=== PATIENT | male | born 1955 | race Caucasian/White ===

== ENCOUNTER 2016-11-09 07:57 | Emergency (ER) | payer OTHER ==
[~2016-11-09] VITALS: Ht 160 cm; Wt 67.0 kg
[~2016-11-09 07:57] MED LIST: ENAL5TAB PO; HYDR-3498 PO; HYDR-762 PO
[2016-11-09 08:00] VITALS: Ht 160 cm; Wt 67.0 kg
--- NOTE | 2016-11-09 08:35 | ERD ---
ER Documentation Chief Complaint Date/Time DATE: 11/09/16 TIME: 08:33 Chief Complaint right hand numbness x 1 day no other neur HPI 7-year-old male with history of hypertension, scoliosis of thoracic comes emergency department with right hand numbness that started yesterday at 4 AM. Patient states that he was at home, started approximately 4 AM where the numbness started from the right elbow down to his right hand, and he has difficulty with opening his palm. He states that symptoms started gradually. He has not had any other deficits otherwise. No chest pain, shortness breath or dizziness. Denies trauma. ROS All systems reviewed and are negative except as per history of present illness. Medications Home Meds Active Scripts Methylprednisolone* (Medrol* DOSE PACK) 4 Mg/Dose-Pack Tab.ds.pk, 4 MG PO . DIRECTED, #1 PACKET Prov:VENU BENJAMIN PA-C 11/09/16 Hydrocodone Bit-Acetaminophen* ([place]*) 10-325 Mg Tablet, 1 TAB PO Q6 Y for PAIN , #20 TAB Prov:DC GTZ 12/19/14 Reported Medications Enalapril Maleate* (Enalapril Maleate*) Unknown Strength Tablet, PO DAILY, TAB 12/18/14 Hydrocodone Bit-Acetaminophen* ([place]*) 5-325 Mg Tab, 1 TAB PO Q4H Y for PAIN, TAB 12/18/14 Allergies Allergies: Coded Allergies: No Known Drug Allergies (Verified Allergy, Mild, 12/18/14) PMhx/Soc History of Surgery: Yes (APPENDECTOMY; ULCER SX; R INGUINIAL REPAIR ) Anesthesia Reaction: No Hx Neurological Disorder: No Hx Respiratory Disorders: No Hx Cardiac Disorders: Yes (HTN) Hx Psychiatric Problems: No Hx Miscellaneous Medical Probl: Yes (pneumothorax s/p partial lung resection) Hx Alcohol Use: No Hx Substance Use: No Hx Tobacco Use: Yes Smoking Status: Never smoker Physical Exam Vitals Vital Signs Date Time Temp Pulse Resp B/P Pulse Ox O2 Delivery O2 Flow Rate FiO2 11/09/16 08:00 98.1 62 18 141/75 99 Physical Exam General: Well-developed, well-nourished. The patient appears in no acute distress. HEENT: Head is normocephalic, atraumatic. No scleral icterus. Neck: Supple. Nontender. Lungs: Clear to auscultation. Normal air movement. Heart: Regular rate and rhythm. S1 and S2 are normal. No murmurs, gallops, or rubs. Abdomen: Soft, nontender, nondistended. Bowel sounds are normoactive. Extremities: No clubbing or cyanosis. Patient has manager of warehouse strength 4 out of 5 on the right side, radial pulse 2+, no swelling, no erythema or warmth. Patient is able to mildly extend the right thumb, not able to make okay sign. Patient' s hand is flexed at baseline, able to partially extend digits. Capillary refill less than 2 seconds. Patient is able to flex and extend bilateral wrists , with normal strength. Neurologic: Alert and oriented 3. Cranial nerves II 12 grossly intact. No focal deficits. Speech and gait normal, cranial nerves II through XII grossly intact, manager of warehouse strength 4 out of 5 on right, 5 out of 5 on the left. Strength lower extremities 5 out of 5 bilaterally. Skin: Normal turgor. No rash or lesions. Procedures/MDM MDM: 61-year-old male comes in for hand numbness in the right side, and patient' s symptoms start with pain in the elbow radiating to the right hand, likely neuropathy. This patient examination and history is consistent with neuropathy , his symptoms began yesterday at 4 AM, and his MRI of the brain does not show any evidence of intracranial process, including stroke. His neurologic examination otherwise is benign, there is no weakness, no speech deficits, no ataxia. This case was discussed at length with my attending physician Dr. Landers who agrees that the patient is appropriate to be worked up outpatient with a neurologist. I have given information to neurologist Dr. Adams to follow-up for further evaluation and testing. In the meantime patient may take ibuprofen for the pain in the elbow, as well as Medrol Dosepak. No evidence of axillary injury, there is no wrist drop. The case was reviewed and discussed with Dr. Landers who agrees with the plan of care including labs, treatment, and advanced imaging as appropriate. Patient's blood pressure was elevated (>120/80) but appears stable without evidence of hypertension emergency or urgency. The patient was counseled about the risks of hypertension and urged to pursue outpatient monitoring and therapy within a week with their primary care physician. Departure Diagnosis: Primary Impression: Hand numbness Condition: VENU Sainz-C Nov 09, 2016 08:35
--- NOTE | 2016-11-09 11:22 | RADRPT ---
PROCEDURE: MRI Brain without contrast. CLINICAL INDICATION: Right hand contraction, numbness from elbow down TECHNIQUE: Multiplanar MRI of the brain without contrast was performed on a 3.0 T scanner with the following sequences obtained: T1-weighted, T2-weighted/FLAIR, diffusion weighted (with ADC map), GR E. COMPARISON: CT brain 12/10/2008 FINDINGS: No acute/recent ischemic infarction or intracranial hemorrhage / blood degradation products are iden tified. No extra-axial fluid collection is seen. There is no mass effect. No midline shift is identified. The ventricles and sulci are within normal limits for size and configuration. A few scattered minimal areas of increased T2-weighted FLAIR signal intensity are seen in the deep w lauren matter which are Flow voids are identified in the proximal intracranial arteries and dural sinuses suggesting patency . There is partial bilateral ethmoid air cell opacification and right maxillary sinus mucosal thickeni ng/secretions. IMPRESSION: 1. No evidence of acute intracranial pathology. 2. Minimal nonspecific white matter changes, which may reflect chronic small vessel ischemic change s. RPTAT: VV .Jacob Schmitt MD, Date Time Electronically viewed and signed by .Jacob Schmitt MD, on 11/09/2016 11:22 .O/
[2016-11-09] MEDS ORDERED: MED4DP PO (12:00)
== END 2016-11-09 12:12 | disposition home or self-care (01) ==
LOC: FTE 07:57
DX: R20.0 Anesthesia of skin (principal); I10 Essential (primary) hypertension; Z87.891 Personal history of nicotine dependence
CPT/HCPCS: 70551

== ENCOUNTER 2017-03-16 15:49 | Inpatient (IN) | payer OTHER ==
[~2017-03-16] VITALS: Ht 182.9 cm; Wt 73.5 kg
[~2017-03-16 15:49] MED LIST changes: +MED4DP PO
[2017-03-16] MEDS ORDERED: ASPIRIN 81 MG TAB PO STA (15:54)
[2017-03-16] MEDS ORDERED: DILTIAZEM 25 MG INJ IV ONE ×2 (16:00→17:00)
[2017-03-16] MEDS ORDERED: DILTIAZEM 30 MG TAB PO ONE (16:00)
[2017-03-16 16:30] LABS: BASOPHIL # 0.1 10^3/ul (0.0-0.1); BASOPHILS % 0.8 % (0.0-2.0); EOSINOPHILS # 0.2 10^3/ul (0.0-0.5); EOSINOPHILS % 1.9 % (0.0-7.0); HEMATOCRIT 39.1 % (42.0-52.0); LYMPHOCYTES # 0.9 10^3/ul (0.8-2.9); LYMPHOCYTES % 9.7 % (15.0-51.0); MEAN CORPUSCULAR HEMOGLOBIN 27.5 pg (29.0-33.0); MEAN CORPUSCULAR HGB CONC 30.7 g/dl (32.0-37.0); MEAN CORPUSCULAR VOLUME 89.7 fl (82.0-101.0); MEAN PLATELET VOLUME 10.3 fl (7.4-10.4); MONOCYTE # 0.6 10^3/ul (0.3-0.9); MONOCYTES % 6.6 % (0.0-11.0); NEUTROPHIL # 7.6 10^3/ul (1.6-7.5); NEUTROPHILS % 80.5 % (39.0-77.0); PLATELET COUNT 329 10^3/UL (140-415); RED BLOOD COUNT 4.36 10^6/ul (4.70-6.10); RED CELL DISTRIBUTION WIDTH 15.7 % (11.5-14.5); WHITE BLOOD COUNT 9.5 10^3/ul (4.8-10.8)
[2017-03-16] MEDS ORDERED: MECL-77 PO (16:31)
[2017-03-16] MEDS ORDERED: RANO500T2 PO (16:31)
[2017-03-16] MEDS ORDERED: LORA1TAB PO (16:31)
[2017-03-16] MEDS ORDERED: SERT-165 PO (16:32)
[2017-03-16] MEDS ORDERED: TRAZ150T65 PO (16:33)
[2017-03-16] MEDS ORDERED: ACET1TAB40 PO (16:34)
[2017-03-16] MEDS ORDERED: ASPI81TA50 PO (16:35)
[2017-03-16] MEDS ORDERED: BUTA1CAP41 PO (16:36)
[2017-03-16] MEDS ORDERED: CILO50TA PO (16:37)
[2017-03-16] MEDS ORDERED: CLON1TAB3 PO (16:38)
[2017-03-16] MEDS ORDERED: CLON-379 PO (16:40)
[2017-03-16] MEDS ORDERED: DOCU100T PO (16:43)
[2017-03-16] MEDS ORDERED: ENAL10TA PO (16:43)
[2017-03-16] MEDS ORDERED: DICY10CA60 PO (16:43)
[2017-03-16 16:44] LABS: INR 1.16; PROTIME 14.8 Sec (12.2-14.2); PT RATIO 1.2
[2017-03-16 16:45] LABS: PARTIAL THROMBOPLASTIN TIME 34.4 Sec (25.0-35.0)
[2017-03-16] MEDS ORDERED: FAMO40TA52 PO (16:45)
[2017-03-16] MEDS ORDERED: ISOS120T15 PO (16:46)
[2017-03-16] MEDS ORDERED: NAPR500T8 PO (16:47)
[2017-03-16 16:48] LABS: CALCIUM 9.4 mg/dl (8.4-10.2); CREATININE 0.92 mg/dl (0.61-1.24); POTASSIUM 3.7 mmol/L (3.5-5.1)
[2017-03-16] MEDS ORDERED: NITR0.4T32 SL (16:48)
[2017-03-16] MEDS ORDERED: PROP10TA6 PO (16:49)
[2017-03-16] MEDS ORDERED: OMEP40CA6 PO (16:49)
[2017-03-16 16:59] LABS: TROPONIN-I 0.016 ng/ml (0.00-0.12)
--- NOTE | 2017-03-16 17:02 | RADRPT ---
PROCEDURE: XR Chest. CLINICAL INDICATION: Chest pain TECHNIQUE: A single portable view of the chest was obtained. COMPARISON: 02/21/2013 FINDINGS: The cardiomediastinal silhouette is within normal limits. Right apical pleural thickening is seen wi th volume loss. Retraction of the right hilum is seen. No dense consolidation or pleural effusion is seen. The soft tissues and osseous structures are unremarkable. IMPRESSION: 1. Right apical pleural thickening with volume loss and retraction of the right hilum again seen an d is essentially unchanged. 2. Otherwise, no acute cardiopulmonary disease. RPTAT: HPNM Physician Alta Date Time Electronically viewed and signed by Physician Alta on 03/16/2017 17:02 /
[2017-03-16] MEDS ORDERED: ACET/BUTAL/CAFF TAB PO ONE (17:30)
[2017-03-16 17:46] VITALS: TEMP 98.4
[2017-03-16] MEDS ORDERED: ONDANSETRON 4 MG INJ IV STA (17:59)
[2017-03-16] MEDS ORDERED: morphine 4 MG/ML VIAL IV STA (17:59)
[2017-03-16] MEDS ORDERED: ONDANSETRON 4 MG INJ IV PRN ×2 (18:30→20:00)
[2017-03-16] MEDS ORDERED: ACETAMINOPHEN 325 MG TAB PO PRN ×2 (18:30→20:00)
--- NOTE | 2017-03-16 19:17 | ERA ---
ER Documentation Chief Complaint Date/Time DATE: 03/16/17 TIME: 19:09 Chief Complaint CHEST PALPITATION WHILE AT CLINIC, RAPID A FIB. NEW ONSET. NO N/V. MILD SOB HPI Patient is a 62-year-old male with hypertension who presents with low blood pressure. The patient was brought in by ambulance from a clinic. He has new onset atrial fibrillation that was diagnosed at the clinic and low blood pressure by paramedics. He was given 250 mL of fluid by paramedics. He admits to chest pain as well. The symptoms started 1.5 hours ago. The symptoms have been constant. His primary doctor is Dr. Payan. 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 ROS All systems reviewed and are negative except as per history of present illness. Medications Home Meds Reported Medications Propranolol Hcl* (Propranolol Hcl*) 10 Mg Tablet, 10 MG PO TID, TAB 03/16/17 Omeprazole* (Omeprazole*) 40 Mg Capsule.dr, 40 MG PO DAILY, #30 CAP 03/16/17 Nitroglycerin* (Nitroglycerin* SL) 0.4 Mg Tab.subl, 0.4 MG SL Q5MIN Y for CHEST PAIN, BOTTLE 03/16/17 Naproxen* (Naproxen EC*) 500 Mg Tablet.dr, 500 MG PO BID, TAB 03/16/17 Isosorbide Mononitrate* (Isosorbide Mononitrate*) 120 Mg Tab.sr.24h, 120 MG PO DAILY, TAB.SA 03/16/17 Famotidine* (Famotidine*) 40 Mg Tablet, 40 MG PO DAILY, #30 TAB 03/16/17 Enalapril Maleate* (Enalapril Maleate*) 10 Mg Tablet, 10 MG PO BID, TAB 03/16/17 Docusate Sodium* (Dok*) 100 Mg Tablet, 100 MG PO DAILY, #30 CAP 03/16/17 Dicyclomine Hcl* (Bentyl*) 10 Mg Capsule, 20 MG PO BID, CAP 03/16/17 Clonidine Hcl* (Clonidine Hcl*) 0.1 Mg Tab, 0.1 MG PO DAILY Y for NEEDED, TAB 03/16/17 Clonazepam* (Clonazepam*) 1 Mg Tablet, 1 MG PO QHS Y for ANXIETY, TAB 03/16/17 Cilostazol* (Cilostazol*) 50 Mg Tablet, 50 MG PO BID, TAB 03/16/17 Masdybpqjc-Rgvebugloirww-Jezuxtlk* ([place]*) 50-325-40 Mg Capsule, 1 CAP PO Q6H Y for NEEDED, CAP 03/16/17 Aspirin (Aspir-Low) 81 Mg Tablet.dr, 81 MG PO DAILY 03/16/17 Acetaminophen with Codeine (Acetaminophen-Cod #3 Tablet) 1 Each Tablet, 1 TAB PO Q6H Y for NEEDED, #7 TAB 03/16/17 Trazodone Hcl* (Trazodone Hcl*) 150 Mg Tablet, 150 MG PO QHS, #30 TAB 03/16/17 Sertraline Hcl* (Sertraline Hcl*) 100 Mg Tablet, 200 MG PO QAM, #60 TAB 03/16/17 Ranolazine* (Ranexa*) 500 Mg Tab.sr.12h, 500 MG PO Q12, TAB 03/16/17 Meclizine Hcl* (Meclizine Hcl*) 25 Mg Tablet, 25 MG PO DAILY Y for DIZZINESS, TAB 03/16/17 Lorazepam* (Lorazepam*) 1 Mg Tablet, 1 MG PO HS Y for ANXIETY, #30 TAB 03/16/17 Discontinued Reported Medications Enalapril Maleate* (Enalapril Maleate*) Unknown Strength Tablet, PO DAILY, TAB 12/18/14 Hydrocodone Bit-Acetaminophen* ([place]*) 5-325 Mg Tab, 1 TAB PO Q4H Y for PAIN, TAB 12/18/14 Discontinued Scripts Methylprednisolone* (Medrol* DOSE PACK) 4 Mg/Dose-Pack Tab.ds.pk, 4 MG PO . DIRECTED, #1 PACKET Prov:VENU BENJAMIN PA-C 11/09/16 Hydrocodone Bit-Acetaminophen* ([place]*) 10-325 Mg Tablet, 1 TAB PO Q6 Y for PAIN , #20 TAB Prov:DC GTZ 12/19/14 Allergies Allergies: Coded Allergies: No Known Drug Allergies (Verified Allergy, Mild, 03/16/17) PMhx/Soc History of Surgery: Yes (APPENDECTOMY; ULCER SX; R INGUINIAL REPAIR ) Anesthesia Reaction: No Hx Neurological Disorder: No Hx Respiratory Disorders: No Hx Cardiac Disorders: Yes (HTN) Hx Psychiatric Problems: No Hx Miscellaneous Medical Probl: Yes (pneumothorax s/p partial lung resection) Hx Alcohol Use: No Hx Substance Use: No Hx Tobacco Use: Yes FmHx Family History: No coronary disease Physical Exam Vitals Vital Signs Date Time Temp Pulse Resp B/P Pulse Ox O2 Delivery O2 Flow Rate FiO2 03/16/17 17:46 98.4 72 18 112/72 97 Room Air 03/16/17 17:36 98.4 70 18 97/54 97 Room Air 03/16/17 16:01 Nasal Cannula 2 03/16/17 15:53 98.8 172 21 98/56 98 Physical Exam Const: Moderate distress Head: Atraumatic Eyes: Normal Conjunctiva ENT: Normal External Ears, Nose and Mouth. Neck: Full range of motion..~ No meningismus. Resp: Clear to auscultation bilaterally Cardio: Critical rate with irregular rhythm Abd: Soft, non tender, non distended. Normal bowel sounds Skin: Pale skin Back: No midline or flank tenderness Ext: No cyanosis, or edema Neur: Awake and alert Psych: Normal Mood and Affect Result Diagram: 03/16/17 1600 03/16/17 1600 Results 24 hrs Laboratory Tests Test 03/16/17 16:00 White Blood Count 9.510^3/ul Red Blood Count 4.3610^6/ul Hemoglobin 12.0g/dl Hematocrit 39.1% Mean Corpuscular Volume 89.7fl Mean Corpuscular Hemoglobin 27.5pg Mean Corpuscular Hemoglobin Concent 30.7g/dl Red Cell Distribution Width 15.7% Platelet Count 18435^3/UL Mean Platelet Volume 10.3fl Neutrophils % 80.5% Lymphocytes % 9.7% Monocytes % 6.6% Eosinophils % 1.9% Basophils % 0.8% Nucleated Red Blood Cells % 0.0/100WBC Neutrophils # 7.610^3/ul Lymphocytes # 0.910^3/ul Monocytes # 0.610^3/ul Eosinophils # 0.210^3/ul Basophils # 0.110^3/ul Nucleated Red Blood Cells # 0.010^3/ul Prothrombin Time 14.8Sec Prothrombin Time Ratio 1.2 INR International Normalized Ratio 1.16 Activated Partial Thromboplast Time 34.4Sec Sodium Level 145mmol/L Potassium Level 3.7mmol/L Chloride Level 107mmol/L Carbon Dioxide Level 26mmol/L Anion Gap 16 Blood Urea Nitrogen 14mg/dl Creatinine 0.92mg/dl Glucose Level 135mg/dl Calcium Level 9.4mg/dl Troponin I 0.016ng/ml Current Medications Medications (Trade) Dose Ordered Sig/Keila Route PRN Reason Start Time Stop Time Status Last Admin Dose Admin Aspirin (Aspirin) 162 mg ONCE STAT PO 03/16/17 15:54 03/16/17 15:55 DC 03/16/17 16:13 Diltiazem HCl (Cardizem Iv) 10 mg ONCE ONCE IV 03/16/17 16:00 03/16/17 16:01 DC 03/16/17 16:13 Diltiazem HCl (Cardizem) 30 mg ONCE ONCE PO 03/16/17 16:00 03/16/17 16:01 DC 03/16/17 16:14 Diltiazem HCl (Cardizem Iv) 20 mg ONCE ONCE IV 03/16/17 17:00 03/16/17 17:01 DC 03/16/17 16:59 Acetaminophen/ Butalbital/ Caffeine (Fioricet) 1 tab ONCE ONCE PO 03/16/17 17:30 03/16/17 17:31 DC 03/16/17 17:25 Morphine Sulfate (morphine) 4 mg ONCE STAT IV 03/16/17 17:59 03/16/17 18:00 DC 03/16/17 18:08 Ondansetron HCl (Zofran Inj) 4 mg ONCE STAT IV 03/16/17 17:59 03/16/17 18:00 DC 03/16/17 18:08 Ondansetron HCl (Zofran Inj) 4 mg ER BRIDGE PRN IV NAUSEA AND/OR VOMITING 03/16/17 18:30 03/17/17 18:29 Acetaminophen (Tylenol Tab) 650 mg ER BRIDGE PRN PO MILD PAIN/FEVER 03/16/17 18:30 03/17/17 18:29 Procedures/MDM EKG #1 read by me: Rate/Rhythm: Rapid atrial fibrillation at a rate of 162 Intervals: Normal Impression: Rapid atrial fibrillation with ST depressions EKG #2 read by me: Rate/Rhythm: Rapid atrial fibrillation at a rate of 166 Intervals: Normal Impression: Rapid atrial fibrillation with ST depressions PROCEDURE: XR Chest. CLINICAL INDICATION: Chest pain TECHNIQUE: A single portable view of the chest was obtained. COMPARISON: 02/21/2013 FINDINGS: The cardiomediastinal silhouette is within normal limits. Right apical pleural thickening is seen with volume loss. Retraction of the right hilum is seen. No dense consolidation or pleural effusion is seen. The soft tissues and osseous structures are unremarkable. IMPRESSION: 1. Right apical pleural thickening with volume loss and retraction of the right hilum again seen and is essentially unchanged. 2. Otherwise, no acute cardiopulmonary disease. RPTAT: HPNM Physician Alta Date Time Electronically viewed and signed by Howard Sherman Physician on 03/16/2017 17 :02 Smoking Cessation Therapy: Pt. was lectured for greater than 3 minutes on the health risks of continued smoking and the benefits of cessation. Patient is a 62-year-old male with hypertension who presents with new onset rapid atrial fibrillation and hypotension. The patient was given fluid boluses upon arrival because I did want to give diltiazem both IV and p.o. The patient improved his heart rate while in the emergency department and his blood pressure improved slightly as well. The patient will be admitted to the care of the panel team for further treatment. He is unstable for transfer given his new onset atrial fibrillation and hypertension. The patient does not require pressor administration at this time. The patient also has chest pain and I am concerned about possible acute coronary syndrome so he was given aspirin. I held off on nitroglycerin because of his hypotension. I doubt pneumonia, pneumothorax, pulmonary embolism, or aortic dissection. Critical Care: Time: 35 minutes excluding all billable procedures. Treatments/Evaluations: Close monitoring and treatment of unstable vital signs, cardiorespiratory, and neurologic status, while maintaining tight balance of fluid, respiratory, and cardiac interventions. Departure Diagnosis: Primary Impression: Atrial fibrillation with rapid ventricular response Additional Impressions: Palpitations Hypotension Qualified Code: I95.9 - Hypotension, unspecified hypotension type Condition: MICHAEL Lorenzo MD Mar 16, 2017 19:17
[2017-03-16] MEDS ORDERED: BISACODYL (EC) 5 MG TAB PO PRN (20:00)
[2017-03-16] MEDS ORDERED: NACL 0.9% 3 ML SYG IV SCH (20:00)
[2017-03-16] MEDS ORDERED: morphine 2 MG INJ IV PRN (20:00)
[2017-03-16] MEDS ORDERED: clonAZEPAM 0.5 MG TAB PO PRN (20:00)
[2017-03-16] MEDS ORDERED: MECLIZINE 25 MG TAB PO PRN (20:00)
[2017-03-16] MEDS ORDERED: ASPIRIN (EC) 325 MG TAB PO SCH (20:00)
[2017-03-16] MEDS ORDERED: BUTALBITAL ACETAMINOPHEN CAFFEINE PO PRN (20:00)
[2017-03-16] MEDS ORDERED: DOCUSATE SODIUM 100 MG CAP PO PRN (20:00)
[2017-03-16] MEDS ORDERED: traZODone 50 MG TAB PO SCH (21:00)
[2017-03-16] MEDS ORDERED: CILOSTAZOL 100 MG TAB PO SCH (21:00)
[2017-03-16] MEDS ORDERED: LORAZEPAM 2 MG INJ IV ONE (22:00)
[2017-03-16 23:15] LABS: CK-MB 1.87 ng/ml (0.0-2.4); TROPONIN-I 0.272 ng/ml (0.00-0.12)
[2017-03-16 23:40] VITALS: BP 119/57; PULSE 64; RESP 18
--- NOTE | 2017-03-17 01:30 | HP ---
Date/Time of Note Date/Time of Note DATE: 03/17/17 TIME: 01:25 Assessment/Plan VTE Prophylaxis VTE Prophylaxis Intervention: SCD's Lines/Catheters IV [facility]ter [facility]from [facility]): Saline Lock Assessment/Plan Chief Complaint/Hosp Course This is a 62-year-old male being admitted to the telemetry floor for: #1 New onset A. fib with RVR: Patient was given Cardizem p.o. and IV doses in the ED. Patient subsequently responded and was rate controlled with a rate less than 100 bpm. His blood pressure also began to improve once the heart rate decreased. Currently patient is not in any chest pain. First set of cardiac enzyme was negative the second 1 is elevated at 0.27, patient is not currently in any chest pain. At the current time I feel that this elevation in his troponin likely is from the A. fib however we will continue to check this every 6 hours and if they continue to rise will start the patient on anticoagulation with a heparin drip. Will consult cardiology. Will check echocardiogram in the a.m. Will check a TSH and magnesium level. We will continue to monitor patient on telemetry. #2 chest pain: Likely secondary to #1. Currently his chest pain is resolved. His second troponin was elevated at 0.27. I feel this is likely secondary to his atrial fibrillation. Will continue to trend this and start heparin drip indicated. Please see #1. #3 hypertension: At the current time will hold off on any antihypertensives as patient was hypotensive prior to coming to the ED. Resume blood pressure medications as indicated. #4 heart disease of unknown etiology: Patient does not know the etiology of his heart condition however he is on aspirin and Ranexa as well as blood pressure medications. Will get an echocardiogram in the a.m. and have cardiology consultation. #5 migraines: Stable #6 history of gastric ulcer: Stable, continue acid laila #7 history of pneumothorax: Status post lung resection. Currently stable #8 DVT GI prophylaxis: SCDs, acid laila Further treatment strategy will be implemented as per the clinical course Problems: HPI/ROS Admit Date/Time Admit Date/Time Mar 16, 2017 at 18:15 Hx of Present Illness cc:chest pain Patient is a 62-year-old male with hypertension who presents with low blood pressure. The patient was brought in by ambulance from a clinic. He has new onset atrial fibrillation that was diagnosed at the clinic and low blood pressure by paramedics. He was given 250 mL of fluid by paramedics. He admits to chest pain as well. The symptoms started 1.5 hours ago. The symptoms have been constant. His primary doctor is Dr. Payan. He does not know the name of his hostel parent. Currently on examination patient denies any chest pain. allergies:nkda meds: see jul ROS Const: As per HPI Eyes : No pain discharge or redness or change in visual acuity ENT: No pain, sore throat, congestion, congestion, dysphagia or discharge Respiratory: No shortness of breath, cough, sputum, wheezing, or pleuritic pain Cardiovascular: As per HPI GI : no change in appetite, abdominal pain, nausea, vomiting, diarrhea, constipation, or change in the color his stool Genitourinary: No dysuria, hematuria, flank pain , discharge or CVA tenderness Musculoskeletal: No joint pain, back pain, neck pain, restricted range of motion in neck or joints Skin: No rash, bruising or hives Neuro: No headache, dizziness, syncope, seizure, focal weakness Endocrine: No polyuria, polydipsia, temperature intolerance Psych: No hallucination, depression, anxiety or suicidal ideation PMH/Family/Social Past Medical History htn, migraines, pneumothorax s/p lung resection, gastric ulcer Past Surgical History appendectomy, hernia sx, Social History Smoking Status: Current every day smoker Exam/Review of Systems Vital Signs Vitals Vital Signs Date Time Temp Pulse Resp B/P Pulse Ox O2 Delivery O2 Flow Rate FiO2 03/16/17 23:40 98.0 64 18 119/57 96 Room Air 03/16/17 16:01 2 Exam Exam General: Patient is well-developed well-nourished The patient is alert oriented -3 lying comfortably in bed. HEENT: Atraumatic, normocephalic. The pupils are equal, round and reactive. Extraocular motor are intact Neck: Supple with full range of motion. No rigidity or meningismus Chest: Nontender Lungs: Clear to auscultation bilaterally no crackles rales or wheezing Heart: Irregularly irregular, rate controlled Abdomen: Soft , nontender, nondistended , bowel sounds are present. No guarding no rebound tenderness , No masses or organomegaly. No costovertebral temporal angle mass Extremities: Normal to inspection, no edema no cyanosis Neurologic: Normal mental status, speech normal, cranial nerves II through XII are intact, motor and sensory are intact, no focal weakness Additional Comments PROCEDURE: XR Chest. CLINICAL INDICATION: Chest pain TECHNIQUE: A single portable view of the chest was obtained. COMPARISON: 02/21/2013 FINDINGS: The cardiomediastinal silhouette is within normal limits. Right apical pleural thickening is seen with volume loss. Retraction of the right hilum is seen. No dense consolidation or pleural effusion is seen. The soft tissues and osseous structures are unremarkable. IMPRESSION: 1. Right apical pleural thickening with volume loss and retraction of the right hilum again seen and is essentially unchanged. 2. Otherwise, no acute cardiopulmonary disease. RPTAT: HPNM Physician Alta Date Time Electronically viewed and signed by Howard Sherman Physician on 03/16/2017 17 :02 / CC: MICHAEL BANKS MD EKG : Rate/Rhythm: Rapid atrial fibrillation at a rate of 162 Intervals: Normal Impression: Rapid atrial fibrillation with ST depressions Labs Result Diagram: 03/16/17 1600 03/16/17 1600 Medications Medications Current Medications Ondansetron HCl (Zofran Inj) 4 mg Q6H PRN IV NAUSEA AND/OR VOMITING; Start at 20:00 Aspirin (Ecotrin) 325 mg DAILY PO Last administered on 03/16/17t 22:12; Admin Dose 325 MG; Start 03/16/17 at 20:00 Acetaminophen (Tylenol Tab) 650 mg Q6H PRN PO PAIN LEVEL 1-3 OR FEVER; Start 03/16/17 at 20:00 Morphine Sulfate (morphine) 1 mg Q4H PRN IV PAIN LEVEL 7-10; Start 03/16/17 at 20:00 Docusate Sodium (Colace) 100 mg Q12H PRN PO CONSTIPATION; Start 03/16/17 at 20 :00 Bisacodyl (Dulcolax) 5 mg DAILY PRN PO CONSTIPATION; Start 03/16/17 at 20:00 Pantoprazole (Protonix Tab) 40 mg DAILY@06 PO ; Start 03/17/17 at 06:00 Cilostazol (Pletal) 50 mg BID PO Last administered on 03/16/17t 21:44; Admin Dose 50 MG; Start 03/16/17 at 21:00 Clonazepam (Klonopin) 1 mg QHS PRN PO ANXIETY; Start 03/16/17 at 20:00 Meclizine HCl (Antivert) 25 mg DAILY PRN PO DIZZINESS; Start 03/16/17 at 20:00 Sertraline HCl (Zoloft) 200 mg QAM PO ; Start 03/17/17 at 09:00 Trazodone HCl (Desyrel) 150 mg QHS PO ; Start 03/16/17 at 21:00 Miscellaneous Information 1 cap Q6H PRN PO NEEDED; Start 03/16/17 at 20:00 ; Status JAKE ANGEL Mar 17, 2017 01:30
--- NOTE | 2017-03-17 03:45 | DS ---
Date/Time of Note Date/Time of Note DATE: 03/17/17 TIME: 03:40 Discharge Summary Admission/Discharge Info Admit Date/Time Mar 16, 2017 at 18:15 Discharge Date/Time Mar 17, 2017 at 01:59 Discharge Diagnosis New onset atrial fibrillation with RVR Chest pain Patient Condition: Serious Hx of Present Illness cc:chest pain Patient is a 62-year-old male with hypertension who presents with low blood pressure. The patient was brought in by ambulance from a clinic. He has new onset atrial fibrillation that was diagnosed at the clinic and low blood pressure by paramedics. He was given 250 mL of fluid by paramedics. He admits to chest pain as well. The symptoms started 1.5 hours ago. The symptoms have been constant. His primary doctor is Dr. Payan. He does not know the name of his restoration officer. Currently on examination patient denies any chest pain. Hospital Course Patient presented with new onset A. fib in the ED. He was given Cardizem p.o. and IV with subsequent improvement in his heart rate as well as improvement in his blood pressure. Patient's chest pain resolved. Patient was admitted for further monitoring. His initial troponin was negative followed by a second troponin which is elevated at 0.27. Patient remained chest pain free. Patient later requested to be able to go outside of the hospital so that he could smoke. Patient was offered nicotine patch and nicotine gum however patient refused. Patient repeatedly requested that he just wanted to go walk around outside and then come back. Patient was instructed by me as well as the RN that this would be against hospital policy that he would be in his best interest and safety to remain in the hospital. Patient stated that he felt fine and that he just wanted to go outside of the hospital and smoke a cigarette. Patient then stated that he wanted to leave AGAINST MEDICAL ADVICE. I subsequently spoke to the patient and reiterated that it would be in his best interest to stay and be treated for his heart condition as possibility of him going home without treatment could result in possible . Patient refused to stay and he was insistent on leaving AGAINST MEDICAL ADVICE. Patient signed out AMA. Home Meds Reported Medications Propranolol Hcl* (Propranolol Hcl*) 10 Mg Tablet, 10 MG PO TID, TAB 03/16/17 Omeprazole* (Omeprazole*) 40 Mg Capsule., 40 MG PO DAILY, #30 CAP 03/16/17 Nitroglycerin* (Nitroglycerin* SL) 0.4 Mg Tab.subl, 0.4 MG SL Q5MIN Y for CHEST PAIN, BOTTLE 03/16/17 Naproxen* (Naproxen EC*) 500 Mg Tablet.dr, 500 MG PO BID, TAB 03/16/17 Isosorbide Mononitrate* (Isosorbide Mononitrate*) 120 Mg Tab.sr.24h, 120 MG PO DAILY, TAB.SA 03/16/17 Famotidine* (Famotidine*) 40 Mg Tablet, 40 MG PO DAILY, #30 TAB 03/16/17 Enalapril Maleate* (Enalapril Maleate*) 10 Mg Tablet, 10 MG PO BID, TAB 03/16/17 Docusate Sodium* (Dok*) 100 Mg Tablet, 100 MG PO DAILY, #30 CAP 03/16/17 Dicyclomine Hcl* (Bentyl*) 10 Mg Capsule, 20 MG PO BID, CAP 03/16/17 Clonidine Hcl* (Clonidine Hcl*) 0.1 Mg Tab, 0.1 MG PO DAILY Y for NEEDED, TAB 03/16/17 Clonazepam* (Clonazepam*) 1 Mg Tablet, 1 MG PO QHS Y for ANXIETY, TAB 03/16/17 Cilostazol* (Cilostazol*) 50 Mg Tablet, 50 MG PO BID, TAB 03/16/17 Gkucdodhbn-Eboychojpmdyy-Jmtityor* (Zebutal*) 50-325-40 Mg Capsule, 1 CAP PO Q6H Y for NEEDED, CAP 03/16/17 Aspirin (Aspir-Low) 81 Mg Tablet.dr, 81 MG PO DAILY 03/16/17 Acetaminophen with Codeine (Acetaminophen-Cod #3 Tablet) 1 Each Tablet, 1 TAB PO Q6H Y for NEEDED, #7 TAB 03/16/17 Trazodone Hcl* (Trazodone Hcl*) 150 Mg Tablet, 150 MG PO QHS, #30 TAB 03/16/17 Sertraline Hcl* (Sertraline Hcl*) 100 Mg Tablet, 200 MG PO QAM, #60 TAB 03/16/17 Ranolazine* (Ranexa*) 500 Mg Tab.sr.12h, 500 MG PO Q12, TAB 03/16/17 Meclizine Hcl* (Meclizine Hcl*) 25 Mg Tablet, 25 MG PO DAILY Y for DIZZINESS, TAB 03/16/17 Lorazepam* (Lorazepam*) 1 Mg Tablet, 1 MG PO HS Y for ANXIETY, #30 TAB 03/16/17 Discontinued Reported Medications Enalapril Maleate* (Enalapril Maleate*) Unknown Strength Tablet, PO DAILY, TAB 12/18/14 Hydrocodone Bit-Acetaminophen* (Jewett*) 5-325 Mg Tab, 1 TAB PO Q4H Y for PAIN, TAB 12/18/14 Discontinued Scripts Methylprednisolone* (Medrol* DOSE PACK) 4 Mg/Dose-Pack Tab.ds.pk, 4 MG PO . DIRECTED, #1 PACKET Prov:VENU BENJAMIN PA-C 11/09/16 Hydrocodone Bit-Acetaminophen* (Jewett*) 10-325 Mg Tablet, 1 TAB PO Q6 Y for PAIN , #20 TAB Prov:DC GTZ 12/19/14 Follow-up Plan Patient left AMA. Primary Care Provider Nilay Payan Time spent on discharge: < 30 minutes Pending Labs Laboratory Tests Test 03/16/17 16:00 03/16/17 22:25 White Blood Count 9.510^3/ul (4.8-10.8) Red Blood Count 4.3610^6/ul (4.70-6.10) Hemoglobin 12.0g/dl (14.0-18.0) Hematocrit 39.1% (42.0-52.0) Mean Corpuscular Volume 89.7fl (82.0-101.0) Mean Corpuscular Hemoglobin 27.5pg (29.0-33.0) Mean Corpuscular Hemoglobin Concent 30.7g/dl (32.0-37.0) Red Cell Distribution Width 15.7% (11.5-14.5) Platelet Count 55286^3/UL (140-415) Mean Platelet Volume 10.3fl (7.4-10.4) Neutrophils % 80.5% (39.0-77.0) Lymphocytes % 9.7% (15.0-51.0) Monocytes % 6.6% (0.0-11.0) Eosinophils % 1.9% (0.0-7.0) Basophils % 0.8% (0.0-2.0) Nucleated Red Blood Cells % 0.0/100WBC (0.0-0.0) Neutrophils # 7.610^3/ul (1.6-7.5) Lymphocytes # 0.910^3/ul (0.8-2.9) Monocytes # 0.610^3/ul (0.3-0.9) Eosinophils # 0.210^3/ul (0.0-0.5) Basophils # 0.110^3/ul (0.0-0.1) Nucleated Red Blood Cells # 0.010^3/ul (0.0-0.0) Prothrombin Time 14.8Sec (12.2-14.2) Prothrombin Time Ratio 1.2 INR International Normalized Ratio 1.16 Activated Partial Thromboplast Time 34.4Sec (25.0-35.0) Sodium Level 145mmol/L (135-144) Potassium Level 3.7mmol/L (3.5-5.1) Chloride Level 107mmol/L (97-110) Carbon Dioxide Level 26mmol/L (21-31) Anion Gap 16 (8-16) Blood Urea Nitrogen 14mg/dl (7-20) Creatinine 0.92mg/dl (0.61-1.24) Glucose Level 135mg/dl (70-220) Calcium Level 9.4mg/dl (8.4-10.2) Troponin I 0.016ng/ml (0.00-0.12) 0.272ng/ml (0.00-0.12) Creatine Kinase 153IU/L (23-200) Creatine Kinase Index 1.2 Creatinine Kinase MB (Mass) 1.87ng/ml (0.0-2.4) JAKE CHAVES Mar 17, 2017 03:45
[2017-03-17] MEDS ORDERED: PANTOPRAZOLE (EC) 40 MG TAB PO SCH (06:00)
[2017-03-17] MEDS ORDERED: SERTRALINE 100 MG TAB PO SCH (09:00)
== END 2017-03-17 01:59 | disposition left against medical advice (07) | DRG 310 ==
LOC: E/R 15:49 → MS3 18:15
PROVIDERS: ADMIT Internal Medicine; ATTEND Internal Medicine
DX: I48.91 Unspecified atrial fibrillation (principal); I95.9 Hypotension, unspecified; Z79.82 Long term (current) use of aspirin; R07.9 Chest pain, unspecified; G43.909 Migraine, unspecified, not intractable, without status migrainosus
CPT/HCPCS: 36415; 71010; 80048; 82550; 82553; 84484; 85025; 85610; 85730; 93005; 96374; 96375; 96376; J2060; J2270; J2405